=== PATIENT | female | born 1995 | race Caucasian/White ===

== ENCOUNTER 2020-09-17 09:31 | Observation (INO) | payer BC, SELFPAY ==
[2020-09-17 10:08] VITALS: BP 109/79; PULSE 112
[2020-09-17 10:15] VITALS: BP 108/70; PULSE 92
[2020-09-17 10:30] VITALS: BP 106/72; PULSE 95
--- NOTE | 2020-09-17 10:33 | PM.OBTRLD ---
OB - Triage/Final Diagnosis Visit Information Date of evaluation: 09/17/20 Reason for evaluation: other (r/o SROM) Comments/Additional reasons for admission: I have assessed the risk for this patient, Belgica Reilly, and determined that she would benefit from observation care. Evaluation Vital signs: Vital Signs - 24 hr 09/17/20 10:08 09/17/20 10:15 09/17/20 10:30 Pulse Rate 112 H 92 95 Blood Pressure 109/79 108/70 106/72
[2020-09-17 10:37] VITALS: BP 109/79; PULSE 93
== END 2020-09-17 10:50 | disposition home or self-care (01) ==
PROVIDERS: Admitting Provider Student in an Organized Health Care Education/Training Program; Visit Provider Student in an Organized Health Care Education/Training Program
DX: O42.919 Preterm premature rupture of membranes, unspecified as to length of time between rupture and onset of labor, unspecified trimester (principal); Z3A.00 Weeks of gestation of pregnancy not specified
CPT/HCPCS: 59025; G0378; G0379

== ENCOUNTER 2020-10-18 10:41 | Outpatient (RCR) | payer BC, SELFPAY ==
[2020-10-18] MEDS: RHO(D) IMMUNE GLOBULIN 300 MCG/2 ML SYRINGE IM (15:00)
== END 2021-01-07 09:37 | disposition home or self-care (01) ==
LOC: ANHLAB 10:41
PROVIDERS: Visit Provider Student in an Organized Health Care Education/Training Program
DX: Z29.13 Encounter for prophylactic Rho(D) immune globulin (principal); O36.0190 Maternal care for anti-D [Rh] antibodies, unspecified trimester, not applicable or unspecified; Z3A.00 Weeks of gestation of pregnancy not specified
CPT/HCPCS: 36415; 85461; 90384; 96372; J2790

== ENCOUNTER 2020-10-31 16:52 | Observation (INO) | payer BC, SELFPAY ==
[2020-10-31] VITALS (27 sets, daily range): BP systolic 108–118; BP diastolic 75–77; PULSE 94–113; O2SAT 87–100; BMI 32.8
[2020-10-31 17:40] LABS: Add Urine Microscopic? YES; Appearance Urine Clear (Clear); Bilirubin Urine Negative (Negative); Blood Urine Negative (Negative); Color Urine Yellow (Yellow); Glucose Urine UA Negative (Negative); Ketones Urine Negative (Negative); Leukocyte Esterase Ur Trace LEU/UL (NEGATIVE); Mucus Urine Rare /lpf; Nitrate Urine Negative (Negative); Protein Urine Negative (Negative); RBC Urine 0-2 /hpf (0-2); Specific Grav Ur 1.018 (1.001-1.035); Squamous Epithelial Cell Urine Few /hpf (Few); Urobilinogen Urine Negative mg/dL (<2.0)
[2020-10-31] MEDS: NIFEdipine 10 MG CAPSULE PO (18:01)
--- NOTE | 2020-11-05 07:07 | PM.OBTRLD ---
OB - Triage/Final Diagnosis Visit Information Date of evaluation: 10/31/20 Reason for evaluation: threatened labor Comments/Additional reasons for admission: I have assessed the risk for this patient, Belgica Reilly, and determined that she would benefit from observation care. Evaluation Laboratory results: Laboratory Tests 10/31/20 17:11 Urine Color Yellow Urine Appearance Clear Urine pH 7.0 Ur Specific [place] 1.018 Urine Protein Negative Urine Glucose (UA) Negative Urine Ketones Negative Ur Blood (Man) Negative Urine Nitrate Negative Urine Bilirubin Negative Urine Urobilinogen Negative Ur Leukocyte Esterase Trace H Urine RBC 0-2 Ur Squamous Epith Cells Few Urine Mucus Rare
== END 2020-10-31 19:40 | disposition home or self-care (01) ==
PROVIDERS: Admitting Provider Student in an Organized Health Care Education/Training Program; Visit Provider Student in an Organized Health Care Education/Training Program
DX: O47.03 False labor before 37 completed weeks of gestation, third trimester (principal); Z3A.33 33 weeks gestation of pregnancy
CPT/HCPCS: 81001; 87086; A9270; G0378; G0379

== ENCOUNTER 2020-11-16 23:02 | Observation (INO) | payer BC, SELFPAY ==
[2020-11-16 23:47] VITALS: PULSE 102; O2SAT 100
[2020-11-16 23:52] VITALS: PULSE 106; O2SAT 99
[2020-11-16 23:57] VITALS: PULSE 112; O2SAT 100
[2020-11-17] VITALS (29 sets, daily range): BP systolic 103–120; BP diastolic 67–81; PULSE 92–137; O2SAT 95–100; BMI 33.9
[2020-11-17] MEDS: NIFEdipine 10 MG CAPSULE PO (00:07)
--- NOTE | 2020-11-17 00:22 | OBADM ---
This patient, Belgica Reilly, admitted to the OB room OB Post 116 for observation. Patient/family oriented to hospital policies and general routines including ID bracelet, bed and alarms, visiting hours, pain management, procedures, bathroom and other care routines, personal items, smoking policy, room service/diet, and visiting hours. Patient/Family are encouraged to report perceived risks to care and to ask questions if they do not understand what they are told or what they should do.
[2020-11-17 00:32] LABS: Add Urine Microscopic? YES; Appearance Urine Clear (Clear); Bacteria Urine Trace /hpf; Bilirubin Urine Negative (Negative); Blood Urine Negative (Negative); Color Urine Yellow (Yellow); Glucose Urine UA Negative (Negative); Ketones Urine Trace mg/dL (Negative); Leukocyte Esterase Ur Negative LEU/UL (Negative); Mucus Urine Rare /lpf; Nitrate Urine Negative (Negative); Protein Urine Negative (Negative); Specific Grav Ur 1.018 (1.001-1.035); Squamous Epithelial Cell Urine Occasional /hpf (Few); Urobilinogen Urine Negative mg/dL (<2.0); WBC Urine 0-3 /hpf
--- NOTE | 2020-11-17 00:35 | ECG_ITS ---
Measurements Intervals [place] Rate: 90 P: 45 HI: 151 QRS: 44 QRSD: 84 T: 19 QT: 337 QTc: 414 Interpretive Statements SINUS RHYTHM BASELINE ARTIFACT- I, II, III, AVR, AVL, AVF, V2, V4-V6 NORMAL ECG Electronically Signed On 11-19-2020 13:42:06 CDT by Jorge Tyler D.O.
[2020-11-17 01:33] LABS: Glucose Point of Care 87 mg/dl (65-105)
--- NOTE | 2020-11-17 07:13 | P.PNOB_ITS ---
OB - Triage/Final Diagnosis Visit Information Date of evaluation: 11/16/20 Reason for evaluation: threatened labor Comments/Additional reasons for admission: I have assessed the risk for this patient, Belgica Reilly, and determined that she would benefit from observation care. Evaluation Laboratory results: Laboratory Tests 11/17/20 11/17/20 00:08 01:30 POC Capillary Glucose 87 Urine Color Yellow Urine Appearance Clear Urine pH 6.0 Ur Specific [place] 1.018 Urine Protein Negative Urine Glucose (UA) Negative Urine Ketones Trace Ur Blood (Man) Negative Urine Nitrate Negative Urine Bilirubin Negative Urine Urobilinogen Negative Leukocyte Esterase Rfl Negative Urine RBC 3-5 H Urine WBC 0-3 Ur Squamous Epith Cells Occasional Urine Bacteria Trace Urine Mucus Rare Vital signs: Vital Signs - 24 hr 11/16/20 23:47 11/16/20 23:52 11/16/20 23:57 Pulse Rate Blood Pressure Pulse Oximetry 100 99 100 11/17/20 00:00 11/17/20 00:02 11/17/20 00:09 Pulse Rate 103 H Blood Pressure 120/80 Pulse Oximetry 99 97 11/17/20 00:10 11/17/20 00:15 11/17/20 00:16 Pulse Rate Blood Pressure Pulse Oximetry 98 99 100 11/17/20 00:20 11/17/20 00:21 11/17/20 00:26 Pulse Rate 111 H Blood Pressure 111/80 Pulse Oximetry 100 99 11/17/20 00:30 11/17/20 00:35 11/17/20 00:40 Pulse Rate 95 Blood Pressure 112/77 Pulse Oximetry 99 97 99 11/17/20 00:45 11/17/20 00:50 11/17/20 00:55 Pulse Rate 118 H Blood Pressure 106/74 Pulse Oximetry 100 100 100 11/17/20 01:00 11/17/20 01:05 11/17/20 01:10 Pulse Rate 97 Blood Pressure 112/77 Pulse Oximetry 98 98 100 11/17/20 01:15 11/17/20 01:22 11/17/20 01:27 Pulse Rate 103 H Blood Pressure 119/81 Pulse Oximetry 97 100 98 11/17/20 01:30 11/17/20 01:32 11/17/20 01:37 Pulse Rate 134 H Blood Pressure 113/68 Pulse Oximetry 100 98 11/17/20 01:42 11/17/20 01:45 11/17/20 01:46 Pulse Rate 98 Blood Pressure 103/67 Pulse Oximetry 100 95 97 11/17/20 01:50 11/17/20 01:55 Pulse Rate Blood Pressure Pulse Oximetry 96 97
--- NOTE | 2020-11-20 08:08 | PM.OBTRLD ---
OB - Triage/Final Diagnosis Visit Information Date of evaluation: 11/17/20 Reason for evaluation: other (dizziness, contractions) Comments/Additional reasons for admission: I have assessed the risk for this patient, Belgica Reilly, and determined that she would benefit from observation care. Evaluation Laboratory results: Laboratory Tests 11/17/20 11/17/20 00:08 01:30 POC Capillary Glucose 87 Urine Color Yellow Urine Appearance Clear Urine pH 6.0 Ur Specific [place] 1.018 Urine Protein Negative Urine Glucose (UA) Negative Urine Ketones Trace Ur Blood (Man) Negative Urine Nitrate Negative Urine Bilirubin Negative Urine Urobilinogen Negative Leukocyte Esterase Rfl Negative Urine RBC 3-5 H Urine WBC 0-3 Ur Squamous Epith Cells Occasional Urine Bacteria Trace Urine Mucus Rare
== END 2020-11-17 02:12 | disposition home or self-care (01) ==
PROVIDERS: Admitting Provider Student in an Organized Health Care Education/Training Program; Visit Provider Student in an Organized Health Care Education/Training Program
DX: O47.03 False labor before 37 completed weeks of gestation, third trimester (principal); Z3A.35 35 weeks gestation of pregnancy; R42 Dizziness and giddiness
CPT/HCPCS: 81001; 82948; 93005; A9270; G0378; G0379

== ENCOUNTER 2020-12-23 23:40 | Inpatient (IN) | payer BC, SELFPAY ==
[2020-12-24] VITALS (232 sets, daily range): BP systolic 92–138; BP diastolic 53–99; PULSE 56–173; RESP 16; TEMP 36.2–37.3; O2SAT 84–100; BMI 35.9
--- NOTE | 2020-12-24 00:22 | LDADM ---
This patient, Belgica Reilly, was admitted to Labor/Delivery/Recovery 108 on 12/23/20 at 23:40. Plans for labor, pain management and were discussed with patient. Patient/family oriented to hospital policies and general routines including ID bracelet, bed and alarms, visiting hours, pain management, procedures, bathroom and other care routines, personal items, smoking policy, room service/diet and guest tray routines, infant security routines, and visiting hours. Patient/Family are encouraged to report perceived risks to care and to ask questions if they do not understand what they are told or what they should do. See OBIX for further documentation.
[2020-12-24 01:14] LABS: Basophils Percent Auto 0.2 % (0.2-1.2); Eosinophils Absolute Auto 0.1 K/mm3 (0-0.3); Eosinophils Percent Auto 0.6 % (0-4.4); Hemoglobin 8.5 g/dL (12.0-15.0); Immature Granulocyte Absolute 0.04 K/mm3 (0.00-0.031); Immature Granulocyte Percent A 0.4 % (0-0.5); Lymphocytes Absolute Auto 2.24 K/mm3 (0.9-3.2); Lymphocytes Percent Auto 21.4 % (18.3-44.2); Mean Corpuscular HGB Conc 31.5 g/dl (32-36); Mean Corpuscular Hemoglobin 24.9 pg (26-34); Mean Corpuscular Volume 78.9 fl (80-100); Mean Platelet Volume 12.4 fl (7.4-10.4); Monocytes Percent Auto 9.2 % (2.6-8.5); Neutrophils Absolute Auto 7.1 K/mm3 (1.3-6.7); Neutrophils Percent Auto 68.2 % (45.5-73.1); Platelet Count Result 241 k/mm3 (150-375); Red Blood Count 3.42 M/mm3 (4.2-5.4); Red Cell Distribution Width 16.1 % (11.5-14.5); White Blood Count 10.5 K/mm3 (4.5-10.0)
[2020-12-24] MEDS: miSOPROStol 25 MCG TABLET VAGINAL (01:23)
[2020-12-24 03:10] LABS: Hepatitis B Surface Antigen Negative (Negative)
[2020-12-24] MEDS: LACTATED RINGERS 1,000 ML 125 ML IV CONT ×2 (05:33→13:16)
[2020-12-24] MEDS: AMPICILLIN 2 GM/NS 100 ML 2 GM/100 ML BAG IVPB (05:34)
[2020-12-24 07:03] LABS: HIV 1/2 Ab P24 Ag Result Negative (Negative)
--- NOTE | 2020-12-24 07:20 | WPDHPUPDATE1 ---
History and Physical Update Update Date/Time: 12/24/20 07:20 25 yo at 40w0d who presents for elective IOL. She denies any contractions, LOF or vaginal bleeding. She endorses good movement. Her is complicated by Rubella non-immune status. History and Physical has been reviewed, including an updated exam of the patient. There are NO changes in the patient's condition. Risks, benefits, and alternatives have been discussed and questions answered. Patient agrees to proceed with procedure. A/P: admit to L&D routine admission orders Rh neg, will need rhogam PP GBS positive, will give PCN in labor FHT cat 1 plan for cyotec IOL continuous EFM
[2020-12-24] MEDS: OXYTOCIN 30 UNITS/NS 500 ML 30 UNITS/500 ML BAG 6 UNITS IV CONT (08:00)
[2020-12-24] MEDS: AMPICILLIN 1 GM/NS 50 ML 1 GM/50 ML BAG IVPB ×3 (09:33→17:52)
[2020-12-24 11:41] LABS: Rapid Plasma Reagin Non-Reactive (NonReactive)
[2020-12-24] MEDS: fentaNYL CITRATE INJ (*CRX) 100 MCG/2 ML VIAL 50 MCG IV PUSH (12:10)
--- NOTE | 2020-12-24 14:15 | WPDANESEPPF ---
Anes - Initial Pre Proc Eval Date/Time: 12/24/20 14:15 Surgeon: Adalberto Salas MD Pre Op Diagnosis: Induction Patient Data Age: 25 Gender: F Height: 1.57 m Weight: 88.95 kg Last Vital Signs Temp 36.6 C 12/24/20 12:04 Pulse 105 H 12/24/20 14:00 BP 101/68 12/24/20 14:00 Pulse Ox 100 12/24/20 14:15 Allergies Allergy/AdvReac Type Severity Reaction Status Date / Time No Known Allergies Allergy Verified 10/18/20 15:00 Laboratory Tests 12/24/20 12/24/20 12/24/20 00:56 00:57 00:57 WBC 10.5 K/mm3 H K/mm3 (4.5-10.0) RBC 3.42 M/mm3 L M/mm3 (4.2-5.4) Hgb 8.5 g/dL L g/dL (12.0-15.0) Hct 27.0 % L % (37.0-47.0) MCV 78.9 fl L fl (80-100) MCH 24.9 pg L pg (26-34) MCHC 31.5 g/dl L g/dl (32-36) RDW 16.1 % H % (11.5-14.5) Plt Count 241 k/mm3 k/mm3 (150-375) MPV 12.4 fl H fl (7.4-10.4) Immature Gran % (Auto) 0.4 % % (0-0.5) Neut % (Auto) 68.2 % % (45.5-73.1) Lymph % (Auto) 21.4 % % (18.3-44.2) [place] % (Auto) 9.2 % H % (2.6-8.5) Eos % (Auto) 0.6 % % (0-4.4) Baso % (Auto) 0.2 % % (0.2-1.2) Lymph # (Auto) 2.24 K/mm3 K/mm3 (0.9-3.2) [place] # (Auto) 1.0 K/mm3 H K/mm3 (0.1-0.6) Eos # (Auto) 0.1 K/mm3 K/mm3 (0-0.3) Baso # (Auto) 0.0 K/mm3 K/mm3 (0.0-0.1) Abs Immat Gran (auto) 0.04 K/mm3 H K/mm3 (0.00-0.031) Absolute Neuts (auto) 7.1 K/mm3 H K/mm3 (1.3-6.7) Absolute Nucleated RBC 0.0 K/mm3 K/mm3 (0.0-0.012) Nucleated RBC % 0.0 % % (0.0-0.2) RPR Non-reactive (NonReactive) Hep Bs Antigen HIV 1&2 Ab/P24 Ag 4thGn Blood Type A Negative Antibody Screen Negative 12/24/20 12/24/20 00:57 00:57 WBC RBC Hgb Hct MCV MCH MCHC RDW Plt Count MPV Immature Gran % (Auto) Neut % (Auto) Lymph % (Auto) [place] % (Auto) Eos % (Auto) Baso % (Auto) Lymph # (Auto) [place] # (Auto) Eos # (Auto) Baso # (Auto) Abs Immat Gran (auto) Absolute Neuts (auto) Absolute Nucleated RBC Nucleated RBC % RPR Hep Bs Antigen Negative (Negative) HIV 1&2 Ab/P24 Ag 4thGn Negative (Negative) Blood Type Antibody Screen Patient hx anesthesia problems: none Family hx anesthesia problems: none Results Review: All pre-operative results and documents have been reviewed as part of the pre-operative evaluation. [facility] Social History Social History Smoking status: Never smoker Second hand tobacco smoke exposure: No Substance use: never Spiritual care concerns: No Anes - Eval Final PreProcedure Day of Procedure 12/24/20 14:15 Patient weight: obese Heart: regular rate and rhythm Lungs: clear to auscultation Neurological: alert and oriented ASA classification: II Emergent: no Anesthetic plan: proceed Anesthesia type and monitoring: regional epidural and standard monitoring Results Review: All pre-operative results and documents have been reviewed as part of the pre-operative evaluation. Informed Consent: The patient's anesthetic plan and its attendant risks and benefits were discussed with the patient/family/POA. Questions were solicited and answers provided to the satisfaction of the patient/family/POA.
--- NOTE | 2020-12-24 20:38 | PM.OBPRVD ---
OB - Delivery Note Procedure Delivery date: 12/24/20 Procedure: Patient pushed for a spontaneous vaginal delivery. Fetus was noted to have a body cord x1 that was delivered through. The fetus was delivered atraumatically and placed on the maternal abdomen. The cord was clamped and cut after 1 minute of life. The cord was double clamped and cut and a segment of cord was collected for cord gases. Cord blood was collected for blood type and Coomb's testing. The placenta delivered spontaneously and was noted to be intact. The perineum was inspected and there was a 2nd degree perineal laceration as well a periurethral laceration. The lacerations were repaired with 3-0 vicryl in the usual fashion. The uterus was firm and good hemostasis was noted. The patient and fetus were stable in the delivery room. Intrapartal events: None Induction method: per misoprostol protocol Delivery augmentation: rupture of membranes and pitocin Delivery monitor: external FHT Route of delivery: Episiotomy description: None Laceration Description: Periurethral and Perineal - 2nd Degree Delivery repair: vicryl Specimen: No Quantitative Blood Loss (ml): 150 Anesthesia type: Epidural Disposition: floor () Complications: No immediate complications [place] Baby Date of : 12/25/19 Time of : 20:19 Weeks of gestation at delivery: 40 Infant gender: Male Weight (pounds): 7 Weight (ounces): 14 presentation: vertex position: Right Occiput Anterior Placenta delivery description: Spontaneous cord vessel description: 3 Vessels and Around Body x1 score one minute: 7 score five minutes: 9
[2020-12-24] MEDS: OXYTOCIN 30 UNITS/NS 500 ML 30 UNITS/500 ML BAG 125 UNITS IV CONT (21:00)
[2020-12-24] MEDS: IBUPROFEN 600 MG TABLET PO (21:34)
[2020-12-24 22:47] LABS: Hematocrit 27.1 % (37.0-47.0); Hemoglobin 8.6 g/dL (12.0-15.0); Mean Corpuscular HGB Conc 31.7 g/dl (32-36); Mean Corpuscular Hemoglobin 24.9 pg (26-34); Mean Corpuscular Volume 78.3 fl (80-100); Mean Platelet Volume 12.4 fl (7.4-10.4); Platelet Count Result 242 k/mm3 (150-375); Red Blood Count 3.46 M/mm3 (4.2-5.4); White Blood Count 21.5 K/mm3 (4.5-10.0)
[2020-12-24] MEDS: WITCH HAZEL 40 PADS 1 PAD TOPICAL (23:18)
[2020-12-24] MEDS: BENZOCAINE 20% AER SPR (*SP) 56 GM CAN 1 SPRAY TOPICAL (23:18)
--- NOTE | 2020-12-24 23:22 | OBPPTRN ---
Patient transferred to post room #292 via wheelchair. Support person present. Oriented to unit, room, information board, rooming in, admission packet and security measures. Patient verbalizes understanding.
--- NOTE | 2020-12-25 03:23 | PC.NURSE ---
0315 on 12/25/2020 I answered a call to the room by the patient to help her to the bathroom. Upon entering the room I noticed the bed was raised high so she could get tend to the baby in the crib. The patient's right leg was hanging over the bed in her attempt to reach the controls on the outside of the bed panel to lower the bed. I immediately lowered the bed and I stressed to the patient the danger in raising the bed that she may fall out of bed and hurt herself. I also stressed that she can call on the call light and we are more than happy to help put baby in the crib or bring the baby out of the crib. The bed must remain at it's lowest level for Mother's safety. Mother states understanding.
[2020-12-25 04:30] VITALS: BP 112/71; PULSE 109; RESP 16; TEMP 36.9; O2SAT 99
[2020-12-25 05:42] LABS: Hemoglobin 7.6 g/dL (12.0-15.0)
[2020-12-25] MEDS: DOCUSATE SODIUM 100 MG CAPSULE PO ×2 (07:53→18:01)
[2020-12-25] MEDS: POLYSACCHARIDE IRON COMPLEX 150 MG CAPSULE PO ×2 (07:53→18:01)
[2020-12-25 08:30] VITALS: BP 123/79; PULSE 96; RESP 16; TEMP 36.4; O2SAT 98
--- NOTE | 2020-12-25 10:15 | WPDANLDPN2 ---
Anes-Prog Note L&D Date/Time: 12/25/20 10:15 Comfortable throughout: labor and delivery Neuraxial method: epidural Epidural/Spinal procedure site: clean & non-tender Neuro status: Neuro function grossly intact. Cardiovascular status: normal Respiratory status: normal Airway patency: baseline Mental status: baseline Post-Op hydration status: normal Vital Signs: Last Vital Signs Temp 36.4 C L 12/25/20 08:30 Pulse 96 12/25/20 08:30 Resp 16 12/25/20 08:30 BP 123/79 12/25/20 08:30 Pulse Ox 98 12/25/20 08:30 Pain score (VAS): 03/04 I/O: Intake & Output 12/24/20 12/25/20 12/25/20 23:59 07:59 15:59 Intake Total 550 500 Balance 550 500 Post-procedural complaints: none Patient feedback: Patient satisfied with anesthetic care.
[2020-12-25 11:42] VITALS: BP 120/77; PULSE 104; RESP 16; TEMP 36.4; O2SAT 99
[2020-12-25] MEDS: RHO(D) IMMUNE GLOBULIN 300 MCG/2 ML SYRINGE IM (11:49)
[2020-12-25] MEDS: IBUPROFEN 600 MG TABLET PO ×2 (11:56→18:01)
--- NOTE | 2020-12-25 16:38 | PM.OBDSVD ---
DS: Admitting Diagnosis Discharge Date 12/25/20 Admitting Diagnosis intrauterine at term OB - DS: Summary OB Procedures : None OB Procedures Intrapartum: Spontaneous Vag Delivery OB Procedures: : None Status at Discharge Functional status at discharge: independent ambulation Overall status at discharge: patient is back to baseline Time Spent with Patient Time attestation: Total time spent providing and/or coordinating discharge services: Time spent: Less than 30 minutes Exam Const: General: comfortable and no acute distress Resp: Effort & Inspection: normal respiratory effort Auscultation: clear to auscultation bilaterally Cardio: Rate: regular rate GI: GI Palp: Yes Soft to palpation Auscultation: normal bowel sounds Other: Fundus firm below umbilicus Psych: Appearance: grossly normal Mental Status: mental status grossly normal Affect: normal affect DS: Data Data Completed and Pending Labs on day of discharge: Labs from last 24 hours 12/25/20 12/25/20 12/24/20 04:49 04:49 22:41 WBC 21.5 H RBC 3.46 L Hgb 7.6 L 8.6 L Hct 24.0 L 27.1 L MCV 78.3 L MCH 24.9 L MCHC 31.7 L RDW 16.0 H Plt Count 242 MPV 12.4 H Blood Type A Negative Antibody Screen TNP Screen Negative Baby's Blood Type A pos Baby's WILLARD Negative Doses of RhIg Required 1 Discharge Plan Discharge Discharging Clinician: Adalberto Salas Patient Disposition: Home, Self-Care Activity: as tolerated and pelvic rest Diet: regular Patient Instructions: Antibiotic Form, Vaginal Delivery (DC) Stand Alone Forms: General Discharge Information Follow-up/Referrals: Adalberto Salas MD [Physician] - 4 Weeks Discharge Medications: New ibuprofen 600 mg Tablet 600 mg PO Q6H PRN (Reason: Cramping) Qty: 30 RF: 0 polysaccharide iron complex 150 mg iron Capsule 150 mg PO BIDWM Qty: 60 RF: 0 acetaminophen [Mapap (acetaminophen)] 325 mg Tablet 650 mg PO Q6H PRN (Reason: Mild Pain (1-3) Or Headache) Qty: 30 RF: 0 Date of admission: 12/23/20 23:40 Primary Care Provider: PHYSICIAN,SCHOOL LEADER Admitting Provider: Adalberto Salas Attending physician on admission: Adalberto Salas Condition: Stable
[2020-12-25 18:01] VITALS: BP 123/84; PULSE 105; RESP 16; TEMP 36.4; O2SAT 100
[2020-12-25 19:35] VITALS: BP 120/70; PULSE 106; RESP 16; TEMP 36.9; O2SAT 99
--- NOTE | 2020-12-25 19:57 | PC.NURSE ---
Patient viewed the discharge video Mother & Baby Care, The First Two Weeks . Patient was given the opportunity and encouraged to ask questions. Patient verbalized understanding of information shared and has been given the mother/baby guide for home reference.
[2020-12-27 11:50] VITALS: BP 121/85; PULSE 87; RESP 20; TEMP 36.9; O2SAT 99
== END 2020-12-25 23:17 | disposition home or self-care (01) | DRG 807 ==
LOC: ANHLDR 23:58 → ANHOB2 12-24 23:51
PROVIDERS: Admitting Provider Student in an Organized Health Care Education/Training Program; Visit Provider Student in an Organized Health Care Education/Training Program
DX: O99.824 Streptococcus B carrier state complicating childbirth (principal); Z37.0 Single live birth; O69.2XX0 Labor and delivery complicated by other cord entanglement, with compression, not applicable or unspecified; O70.1 Second degree perineal laceration during delivery; O71.82 Other specified trauma to perineum and vulva; O76 Abnormality in fetal heart rate and rhythm complicating labor and delivery; Z3A.40 40 weeks gestation of pregnancy
CPT/HCPCS: 36415; 85014; 85018; 85025; 85027; 85461; 86592; 86703; 86850; 86900; 86901; 87340; 90384; A9270; G0432; J0290; J2590; J2790; J2795; J3010; J7120